=== PATIENT | male | born 1995 | race Caucasian/White ===

== ENCOUNTER 2018-06-07 13:10 | Emergency (ER) | payer MEDICAID, OTHER ==
[~2018-06-07] VITALS: Ht 165.1 cm; Wt 74.0 kg
[2018-06-07 13:21] VITALS: Ht 165.1 cm; Wt 74.0 kg
[2018-06-07] MEDS ORDERED: morphine 4 MG/ML VIAL IV STA (13:25)
[2018-06-07] MEDS ORDERED: PROPOFOL 200 MG INJ IV STA (14:10)
[2018-06-07] MEDS ORDERED: IBUP-1542 PO (15:56)
[2018-06-07 16:10] VITALS: BP 117/75; PULSE 70; RESP 20
--- NOTE | 2018-06-07 16:26 | ERD ---
ER Documentation Chief Complaint Chief Complaint R89 RT elbow possible dislocation playing soccer HPI 22-year-old male with no previous medical history presenting with right elbow deformity after falling on his elbow during a soccer game. He is complaining of elbow pain that is currently a 3 out of 10 as the patient did receive fentanyl prior to arrival. He denies any numbness or tingling in the arm. He denies any other injuries. ROS All systems reviewed and are negative except as per history of present illness. Medications Home Meds Active Scripts Ibuprofen* (Motrin*) 600 Mg Tab, 600 MG PO Q6H PRN for PAIN AND OR ELEVATED TEMP, #30 TAB Prov:ANA ROSA ZENG MD 06/07/18 Allergies Allergies: Coded Allergies: No Known Allergy (Unverified , 06/07/18) PMhx/Soc Medical and Surgical Hx: pt denies Medical Hx, pt denies Surgical Hx Hx Alcohol Use: No Hx Substance Use: No Hx Tobacco Use: No Smoking Status: Never smoker FmHx Family History: No diabetes Physical Exam Vitals Vital Signs Date Temp Pulse Resp B/P (MAP) Pulse Ox O2 O2 Flow FiO2 Time Delivery Rate 06/07/18 70 20 117/75 99 Room Air 16:10 (89) 06/07/18 66 20 115/81 99 Room Air 15:15 (92) 06/07/18 66 20 142/88 99 Room Air 15:10 (106) 06/07/18 67 20 132/90 99 Nasal 15:05 (104) Cannula 06/07/18 71 18 117/53 99 Nasal 15:00 (74) Cannula 06/07/18 70 18 129/79 99 Nasal 14:55 (96) Cannula 06/07/18 98.4 78 18 129/79 100 13:21 (96) Physical Exam INITIAL VITAL SIGNS: Reviewed by me GENERAL: Well developed, well nourished. HEAD: Atraumatic. No facial TTP. EYES: EOMI. PERRL. No subconjunctival hemorrhage ENT: No ear, nose, or oral injuries noted NECK: No cervical spine TTP RESPIRATORY: Clear to auscultation bilaterally. No increased work of breathing. CV: Regular rate and rhythm. Cap refill <2sec. 2+ Radial and 2+ dorsalis pedis pulses. ABDOMEN: Soft, non-distended, non-tender. No guarding or rebound. Normal active bowel sounds. BACK: No thoracic or lumbar spine TTP. No CVA tenderness. Pelvis stable EXTREMITIES: Right elbow deformity noted with diffuse tenderness to palpation mild swelling around the elbow joint and upper forearm. The rest of the arm appears normal with no other deformities or joint swelling. Full range of motion of the wrist and the shoulder. All other extremities normal to inspection and palpation with normal range of motion. SKIN: Warm, dry, pink. NEUROLOGIC: A&Ox4. No facial asymmetry. Motor and sensory function intact to all 4 extremities. Results 24 hrs Current Medications Medications Dose Sig/Chen Start Time Status Last (Trade) Ordered Route PRN Stop Time Admin Dose Reason Admin Morphine 4 mg ONCE STAT 06/07/18 DC 06/07/18 Sulfate IV 13:25 13:37 (morphine) 06/07/18 13:27 Propofol 150 mg ONCE STAT 06/07/18 DC 06/07/18 (Diprivan) IV 14:10 14:55 06/07/18 14:12 Procedures/MDM X-ray Elbow 2V Interpreted by me: Bones: Small ulnar fracture Joints: Posterior dislocation of the humeroulnar joint Foreign body: None Procedural Sedation: Pre-assessment performed. See preceding complete history and physical for details. Time out performed. See sedation documentation for details. Medication(s): Propofol Complications: No hypoxic or apneic events Recovered without incident. Greater than 15 minutes of face to face time included in sedation and recovery. Elbow Reduction by me: Anesthesia: Morphine, propofol Location: Right elbow Technique: Traction Method Results: Druze of normal anatomic positioning Compl: Neurovascularly intact post procedure. Posterior Long Arm Splint: Neurovascularly intact post sling placement with good fit. 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 I provided him with multiple resources for outpatient orthopedic follow-up. Patient understands discharge plan. All questions were answered. Prescription for ibuprofen given. Pain was controlled upon discharge. Departure Diagnosis: Primary Impression: Elbow dislocation Encounter type: initial encounter Laterality: right Qualified Codes: S53.104A - Unspecified dislocation of right ulnohumeral joint, initial encounter Condition: Stable Patient Instructions: Elbow Dislocation Referrals: [facility] [place] () Usted se wilson hecho un examen mdico de control que le indica que no est en britt condicin que requiera tratamiento urgente en el Departamento de Emergencia. Un estudio ms profundo y el tratamiento de guevara condicin pueden esperar sin ningn riesgo hasta que usted sea atendida/o en el consultorio de guevara mdico o britt clnica. Es responsabilidad suya arreglar britt sarath para el seguimiento del kimber. MANEJO DE CONDICIONES NO URGENTES EN EL FUTURO 1) Si usted tiene un mdico de atencin primaria: Usted debera llamar a guevara mdico de atencin primaria antes de venir al departamento de emergencia. Despus de las horas de consultorio, guevara doctor o guevara asociado/a est disponible por telfono. El mdico o enfermero de ernie en el servicio telefnico puede asesorarle por catalina medio para atender el problema, o kimber contrario se puede programar britt sarath. 2) Si usted no tiene un mdico de atencin primaria: Llame al mdico o condado institucions de referencia que aparece abajo asher las horas de consultorio para hacer britt sarath para que le vean. SI USTED NO PUEDE PAGAR PARA MANGO UN MEDICO puede ir a: [facility] [address] [place] [address] [facility] [address] [place] [address] [facility] [address] [place] [address] [facility] [address] [place] [address] [facility] Hours: Mon-Fri 9:00 AM - 5:00 PM [facility] 7 a.m.- 11 p.m. Every Day of the Week NO APPOINTMENT OR AUTHORIZATION NEEDED Additional Instructions: [employer] [facility] un ortopedista dentro de 1 semana. Tambin tienes britt pequea fractura en tu radiografa. ANA ROSA ZENG MD Jun 07, 2018 16:26
== END 2018-06-07 15:48 | disposition home or self-care (01) ==
LOC: E/R 13:10
DX: S53.104A Unspecified dislocation of right ulnohumeral joint, initial encounter (principal); X58.XXXA Exposure to other specified factors, initial encounter; Y92.9 Unspecified place or not applicable
CPT/HCPCS: 24600; 73060; 73070; 73080; 73090; J2270; Z7502; Z7610